=== PATIENT | male | born 2000 | race Caucasian/White ===

== ENCOUNTER 2022-05-30 18:24 | Emergency (ER) | payer OTHER ==
[~2022-05-30] VITALS: Ht 182.9 cm; Wt 88.6 kg
[2022-05-30] MEDS ORDERED: LIDOCAINE 1% MDV 20ML VIAL SC ONE (22:15)
[2022-05-30] MEDS ORDERED: ACETAMINOPHEN TAB 650MG DOSE (2X325MG) PO ONE (22:20)
[2022-05-30] MEDS ORDERED: OXYCODONE/APAP 5MG/325MG(HOME DOSE PACK) PO ONE (23:00)
[2022-05-30 23:10] VITALS: BP 132/70
== END 2022-05-30 23:11 | disposition home or self-care (01) ==
LOC: M ED 18:24
DX: S61.304A Unspecified open wound of right ring finger with damage to nail, initial encounter (principal); W27.4XXA Contact with kitchen utensil, initial encounter; Z88.0 Allergy status to penicillin; Y92.009 Unspecified place in unspecified non-institutional (private) residence as the place of occurrence of the external cause; Y93.G1 Activity, food preparation and clean up; Y99.9 Unspecified external cause status

== ENCOUNTER 2023-03-04 23:22 | Emergency (ER) | payer OTHER ==
[~2023-03-04] VITALS: Ht 182.9 cm; Wt 95.1 kg
[2023-03-04 23:24] VITALS: BP 146/86; TEMP 97.3; O2SAT 100
== END 2023-03-05 01:07 | disposition left against medical advice (07) ==
LOC: M ED 23:22
DX: Z53.21 Procedure and treatment not carried out due to patient leaving prior to being seen by health care provider (principal)